=== PATIENT | male | born 1980 | race Caucasian/White ===

== ENCOUNTER 2018-08-09 20:52 | Emergency (ER) | payer SELFPAY ==
[2018-08-09 20:54] VITALS: BP 129/87; PULSE 96; RESP 18; TEMP 36.7; O2SAT 100; BMI 20.7
--- NOTE | 2018-08-09 22:51 | ED.VISSUMM ---
- ER Visit Summary Date of Service: 08/09/18 Chief Complaint: Left ear pain History of Present Illness: The patient is a 38 M presenting with left ear pain. This has been ongoing for the past month. He has tried peroxide drops and Q-tips in his ear with no relief. He has had subjective fever. 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 He is around loud noises at work. Denies other complaints. Physical Examination: Vitals are stable. Patient is afebrile. Alert no acute distress. HEENT exam fluid behind left TM. No erythema. Tenderness left TMJ. No intraoral fluctuance. Neck is supple. Lungs are clear and equal bilaterally. Heart is regular rate and rhythm. Extremities are unremarkable. Skin is warm and dry. No rash. Remainder of exam is unremarkable. Emergency Department Course and Treatment: Patient was given Mucinex D and Naprosyn. Advised to follow-up with his primary care physician and ENT. Advised return to ED if worsening complaints. Disposition: Discharge home Impression: Left serous otitis media This note was generated with [employer] dictation software. It may contain incorrect words, spelling, and punctuation that were not noted in review of the chart prior to signing ED Disposition - Plan for ED Patient: Referrals: Henrry Dacosta DO [Primary Care Provider] -
--- NOTE | 2018-08-09 22:57 | ED.DCSUM_ITS ---
- ER Visit Summary Date of Service: 08/09/18 Chief Complaint: Left ear pain History of Present Illness: The patient is a 38 M presenting with left ear pain. This has been ongoing for the past month. He has tried peroxide drops and Q- tips in his ear with no relief. He has had subjective fever. 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 He is around loud noises at work. Denies other complaints. Physical Examination: Vitals are stable. Patient is afebrile. Alert no acute distress. HEENT exam fluid behind left TM. No erythema. Tenderness left TMJ. No intraoral fluctuance. Neck is supple. Lungs are clear and equal bilaterally. Heart is regular rate and rhythm. Extremities are unremarkable. Skin is warm and dry. No rash. Remainder of exam is unremarkable. Emergency Department Course and Treatment: Patient was given Mucinex D and Naprosyn. Advised to follow-up with his primary care physician and ENT. Advised return to ED if worsening complaints. Disposition: Discharge home Impression: Left serous otitis media This note was generated with [employer] dictation software. It may contain incorrect words, spelling, and punctuation that were not noted in review of the chart prior to signing ED Disposition - Plan for ED Patient: Referrals: Henrry Dacosta DO [Primary Care Provider] -
--- NOTE | 2018-08-09 22:57 | ED.DEP ---
ED Disposition - Plan for ED Patient: Instructions: ED Otitis Media Serous Adult Prescriptions: Guaifenesin/Pseudoephedrne HCl [Mucinex D ER 1,200-120 mg Tab] 1 each PO BID PRN PRN #20 tab.er.12h PRN Reason: Congestion Naproxen [Naprosyn] 500 mg PO BID PRN #20 tablet Referrals: Henrry Dacosta DO [Primary Care Provider] - Roni Beth MD [STAFF PHYSICIAN] -
== END 2018-08-09 23:09 | disposition home or self-care (01) ==
PROVIDERS: Emergency Provider Emergency Medicine; Family Provider Family Medicine; PCP Family Medicine
DX: H65.92 Unspecified nonsuppurative otitis media, left ear (principal); Z72.0 Tobacco use
CPT/HCPCS: 99282